=== PATIENT | female | born 2000 | race Caucasian/White ===

== ENCOUNTER → 2019-11-15 10:43 | Outpatient (CLI) | payer OTHER, SELFPAY ==
--- NOTE | 2019-11-15 10:49 | US_ITS ---
PROCEDURE: US EXTREMITY RT LIMITED CLINICAL INDICATION: GANGLION CYST Palpable abnormality in right axilla COMPARISON: No exams were available for comparison FINDINGS: There is an irregular subcutaneous lesion in the right axilla corresponding to the palpable abnormality measuring 2.7 x 1.4 cm. This has an irregular contour with decreased echogenicity centrally with an irregular contour. Possibly related to an enlarged lymph node although imaging findings are somewhat uncharacteristic. Soft tissue mass is considered. Fine-needle aspiration could be performed with sonographic guidance if clinically desired. This does not appear to represent an abscess. Most of the nodule is slightly hypoechoic to surrounding tissue with further decreased echogenicity centrally. IMPRESSION: Irregular subcutaneous nodule as described above at 2.7 x 1.4 cm possibly due to an enlarged lymph node. Soft tissue mass also consideration. Fine-needle aspiration could be performed with sonographic guidance if clinically desired. Dictated by: Tony Reece MD 11/15/2019 13:22 Electronically signed by Tony Reece MD in [place] 11/15/2019 13:22
== END ==
PROVIDERS: PCP Pediatrics; Visit Provider Pediatrics
DX: M71.38 Other bursal cyst, other site (principal)
CPT/HCPCS: 76882

== ENCOUNTER 2021-03-14 13:18 | Emergency (ER) | payer OTHER, SELFPAY ==
[2021-03-14 13:35] VITALS: BP 142/96; PULSE 102; RESP 19; TEMP 37.5; O2SAT 99; BMI 39.1
--- NOTE | 2021-03-14 14:39 | HMH.EDUTC ---
[facility] [place] Impression: Cellulitis and abscess of lower extremity Disposition: Home, Self-Care Condition on Discharge: Good Instructions: DI for Cellulitis -- Adult, Cellulitis, DI for Skin Abscess Additional Instructions: *Start antibiotic(s) immediately and be sure to take as ordered for the FULL length of time although you may be feeling better or start to see improvement in the next 24-48 hours *Monitor closely. Outlined redness so that you can monitor easier. Follow up immediately for new or worsening symptoms including but not limited to redness, swelling, streaking from site fever or chills. *Warm compress 15 minutes 3-4 times day *Never squeeze or pop these on your own. Seek immediate medical attention next time this occurs *Monitor Temp. Tylenol every 4 hours as needed and ibuprofen every 6 hours as needed (as long as your primary care doctor has told you that it is ok to take both. For fever, aches, pain. ER if no less that 101 despite Tylenol and ibuprofen Follow up with your family doctor/primary care physician in the next 48-72 hours if no improvement Make sure to follow up for your wound culture results Return if needed Straight to ER if any life threatening symptoms Prescriptions: Sulfamethoxazole/Trimethoprim [Bactrim DS tablet] 1 each PO BID 10 Days #20 tab Transmission Status: Pending to [facility] cephALEXin [cephALEXin 500mg capsule*] 500 mg PO Q6H 10 Days #40 cap Transmission Status: Pending to [facility] Mupirocin Calcium [Mupirocin 2% Cream 15gm] 1 applicatio TP TID 10 Days #1 tube Transmission Status: Pending to [facility] Referrals: Clementina Alva [Primary Care Provider] - As needed Time of Disposition: 14:46 Medical Decision Making - Parker Inquiry Pt receiving controlled substance: No Parker was queried for this patient: No Vital Signs: 03/14/21 13:35 Temperature 99.5 F Temperature Source Oral Pulse Rate [Right Brachial] 102 H Respiratory Rate 19 Blood Pressure [Right Arm] 142/96 H Blood Pressure Mean [Right Arm] 111 Blood Pressure Source [Right Arm] Automatic Cuff Blood Pressure Position [Right Arm] Sitting 02 Sat by Pulse Oximetry 99 Oxygen Delivery Method Room Air Orders (Tests/Meds): ORDERS Category Date Time Status Wound Culture and Gram Stain Stat Micro 03/14/21 14:41 [place] [facility] [place] - General Stated complaint: spot on rt thigh nausea Time Seen by Provider: 03/14/21 14:39 Mode of Arrival: Ambulatory Source of Information: Patient Limitations: No Limitations Description of Symptoms (Recalled from Triage Doc. by RN): PATIENT C/O SORE TO TOP OF RIGHT THIGH X 3 DAYS HEENT Symptoms (Recalled from RN notes): No Resp Symptoms (Recalled from RN notes): No Skin Symptoms (Recalled from RN notes): Yes MS Symptoms (Recalled from RN notes): No Functional Status (Recalled from RN notes): WNL - History of Present Illness Provider Complaint: Patient states that she has a sore on her right upper thigh area that is red warm and draining State that started draining earlier and looks like one she had before that was MRSA States that she come in to get some antibiotics to help clear it up - Related Data Previous Rx's Medication Instructions Recorded cephalexin 500 mg capsule 500 mg PO BID 10 Days #20 cap 06/12/19 Mupirocin Calcium [Mupirocin 2% 1 applicatio TP TID 10 Days #1 tube 03/14/21 Cream 15gm] Sulfamethoxazole/Trimethoprim 1 each PO BID 10 Days #20 tab 03/14/21 [Bactrim DS tablet] cephALEXin [cephALEXin 500mg 500 mg PO Q6H 10 Days #40 cap 03/14/21 capsule*] Allergies Allergy/AdvReac Type Severity Reaction Status Date / Time No Known Allergies Allergy Unverified 06/12/19 19:36 - Worker's Comp Is this a Worker's Comp case?: No [facility] History - Hepatitis A Screen Drug use history?: No High risk sexual behaviors?: No History of sexually transmitted infection?: No 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
[2021-03-14 14:40] VITALS: BP 142/96; PULSE 102; RESP 19; TEMP 37.5; O2SAT 99
== END 2021-03-14 14:45 | disposition home or self-care (01) ==
PROVIDERS: Emergency Provider Nurse Practitioner; PCP Pediatrics
DX: L02.415 Cutaneous abscess of right lower limb (principal)
CPT/HCPCS: 87070; 87077; 87205; 99202; G0463

== ENCOUNTER 2021-03-15 18:44 | Emergency (ER) | payer OTHER, SELFPAY ==
[2021-03-15 18:45] VITALS: BP 150/91; PULSE 108; RESP 18; TEMP 37.7; O2SAT 98
--- NOTE | 2021-03-15 18:57 | HMH.EDSKAF ---
ED Disposition Clinical Impression: Cellulitis Qualifiers: Site of cellulitis: extremity Site of cellulitis of extremity: lower extremity Laterality: right Qualified Code(s): L03.115 - Cellulitis of right lower limb Abscess of skin or subcutaneous tissue Qualifiers: Site of cutaneous abscess: extremity Site of cutaneous abscess of extremity: lower extremity Laterality: right Qualified Code(s): L02.415 - Cutaneous abscess of right lower limb Disposition: Home, Self-Care Condition on Discharge: Fair Additional Instructions: Please increase the Bactrim dosing from 1 tablet twice a day to 2 tablets twice a day. More Bactrim has been called into your pharmacy. You may also take Zofran as prescribed for your nausea. Keep the area clean. Cover it when you are at work. Follow up with your primary care physician in about 5 days for wound check. Return to the emergency department if symptoms worsen. Prescriptions: Sulfamethoxazole/Trimethoprim [Bactrim DS tablet] 2 each PO BID 5 Days #20 tab Transmission Status: Pending to [facility] Ondansetron [Ondansetron Odt 8mg Tab] 8 mg PO QID 4 Days #16 tab Transmission Status: Pending to [facility] Referrals: Clementina Alva [Primary Care Provider] - - Critical Care Critical Care Time: No Attestation: On , the high probability of a clinically significant, sudden or life threatening deterioration of the following system(s) required my full and direct attention, intervention and personal management. The time I documented below is in addition to time spent performing reported procedures but includes the following listed in this critical care notation. Medical Decision Making - Medical Records Medical records reviewed: Yes: I reviewed the patient's medical records. - Parker Inquiry Pt receiving controlled substance: No Vital Signs: 03/15/21 18:45 Temperature 99.9 F H Temperature Source Oral Pulse Rate [Right] 108 H Respiratory Rate 18 Blood Pressure [Right Arm] 150/91 H Blood Pressure Mean [Right Arm] 110 02 Sat by Pulse Oximetry 98 Oxygen Delivery Method Room Air Medical Decision Narrative: The patient was seen yesterday and prescribed Bactrim double strength twice a day as well as Keflex 4 times a day. She has cellulitis of the proximal right thigh. The cellulitis has increased in size since she started these medications yesterday. I am advising the patient to take Bactrim double strength 2 tablets twice a day instead of 1 tablet. The patient also complains of some nausea. Therefore, prescription for Zofran will also be provided. Skin/Abscess/FB HPI - General Stated complaint: spot on r Leg Time Seen by Provider: 03/15/21 18:57 Mode of Arrival: Ambulatory Source of Information: Patient Limitations: No Limitations - History of Present Illness HPI narrative: Presents to the emergency department complaining of right thigh pain and redness. This has been ongoing for several days. She was seen yesterday and started on Bactrim 1 tablet twice a day as well as Keflex. She states that the redness has worsened since yesterday. MD complaint: rash Tetanus up to date: yes - Related Data Previous Rx's Medication Instructions Recorded cephalexin 500 mg capsule 500 mg PO BID 10 Days #20 cap 06/12/19 Mupirocin Calcium [Mupirocin 2% 1 applicatio TP TID 10 Days #1 tube 03/14/21 Cream 15gm] Sulfamethoxazole/Trimethoprim 1 each PO BID 10 Days #20 tab 03/14/21 [Bactrim DS tablet] cephALEXin [cephALEXin 500mg 500 mg PO Q6H 10 Days #40 cap 03/14/21 capsule*] Ondansetron [Ondansetron Odt 8mg 8 mg PO QID 4 Days #16 tab 03/15/21 Tab] Sulfamethoxazole/Trimethoprim 2 each PO BID 5 Days #20 tab 03/15/21 [Bactrim DS tablet] Allergies Allergy/AdvReac Type Severity Reaction Status Date / Time No Known Allergies Allergy Unverified 06/12/19 19:36 [facility] History - Hepatitis A Screen Drug use history?: No High risk sexual b
[2021-03-15 19:36] VITALS: BP 148/93; PULSE 85; RESP 18; TEMP 36.8; O2SAT 99
== END 2021-03-15 19:39 | disposition home or self-care (01) ==
PROVIDERS: Emergency Provider Emergency Medicine; PCP Pediatrics
DX: L03.115 Cellulitis of right lower limb (principal)
CPT/HCPCS: 99281; 99282

== ENCOUNTER 2021-10-02 12:15 | Emergency (ER) | payer OTHER, SELFPAY ==
[2021-10-02 12:17] VITALS: BP 163/104; PULSE 116; RESP 18; TEMP 36.8; O2SAT 100; BMI 37.5
--- NOTE | 2021-10-02 12:55 | CT_ITS ---
PROCEDURE INFORMATION: Exam: CT Abdomen And Pelvis With Contrast Exam date and time: 10/02/2021 12:55 PM Age: 21 years old Clinical indication: Abdominal pain; Additional info: Left lower quadrant abdominal pain TECHNIQUE: Imaging protocol: Computed tomography of the abdomen and pelvis with contrast. Radiation optimization: All CT scans at this facility use at least one of these dose optimization techniques: automated exposure control; mA and/or kV adjustment per patient size (includes targeted exams where dose is matched to clinical indication); or iterative reconstruction. Contrast material: ISOVUE; Contrast volume: 75 ml; Contrast route: IV; COMPARISON: CR KUB XR KUB 04/08/2018 4:47 PM FINDINGS: Pleural spaces: Mild interstitial prominence without acute airspace or pleural disease. Liver: Fatty infiltration of the liver. Gallbladder and bile ducts: Unremarkable gallbladder. Pancreas: No pancreatic mass or ductal dilatation. Spleen: No splenomegaly. Adrenal glands: Unremarkable adrenals. Kidneys and ureters: Normal renal morphology. No hydronephrosis. Stomach and bowel: Mild wall thickening in the nondistended stomach. No significant small bowel dilatation. Prominent stool. Appendix: No acute appendicitis. Intraperitoneal space: Small quantity of free fluid in the pelvis, asymmetrically localized in the right adnexal region. Vasculature: Normal caliber of the abdominal aorta. Lymph nodes: Multiple lymph nodes, the majority of which are subcentimeter in size. Urinary bladder: Normal bladder morphology. Reproductive: Punctate calcification contiguous with the right anterior uterine wall. Bones/joints: No acute osseous pathology. Soft tissues: Infiltration of subcutaneous fat about the umbilicus. IMPRESSION: 1. Small quantity of free fluid in the pelvis, asymmetrically localized in the right adnexal region. 2. Mild wall thickening in the nondistended stomach. 3. Additional findings as described above.
[2021-10-02 13:04] LABS: Appearance,Urine SL CLOUDY (Clear); Bilirubin,Urine Negative (Negative); Blood, Urine TRACE-I (Negative); Color,Urine YELLOW (Yellow); Glucose,Urine (UA) Negative (Negative); Ketones,Urine Negative (Negative); Leukocyte Esterase,Urine 2+ (Negative); Microscopic, Urine URINE MICROSCOPIC (MICROSCOPIC); Nitrate,Urine Negative (Negative); Protein,Urine Negative (Negative); Specific Gravity, Urine 1.025 (1.005-1.030); Urobilinogen,Urine 0.2 EU/dl (0.2)
[2021-10-02 13:05] LABS: Urine Pregnancy, HCG Qual. Negative (Negative)
[2021-10-02 13:26] LABS: Bacteria,Urine Trace /lpf; WBC,Urine 20-50 #/hpf (0-3)
[2021-10-02 13:51] LABS: Potassium 4.8 mmoL/L (3.5-5.1); Sodium 138 mmol/L (136-145)
[2021-10-02 13:53] LABS: Blood Urea Nitrogen 17 mg/dl (7-17); Creatinine Clearance Estimated 190 mL/min (50-200); Estimated Glomerular Filt Rate 90 ml/min (>60); GFR (African American) 109 ML/MIN (>60)
[2021-10-02 13:54] LABS: Alanine Aminotransferase 46 U/L (12-78); Albumin Level 5.2 g/dl (3.5-5.0); Albumin/Globulin Ratio 1.1 (1.1-1.8); Alkaline Phosphatase 60 U/L (38-126); Aspartate Amino Transferase 51 U/L (14-36); Calcium 9.7 mg/dl (8.4-10.2); Carbon Dioxide 23 mmol/L (22.0-30.0); Globulin 4.8 g/dL (1.3-3.2); Glucose 96 mg/dl (74-100)
[2021-10-02 13:57] LABS: Basophils # 0.2 K/mm3 (0-0.2); Basophils % 1.9 % (0.1-2.0); Eosinophils # 0.2 K/mm3 (0.0-0.4); Eosinophils % 1.5 % (0.1-12.0); Hematocrit 45.5 % (37.0-47.0); Hemoglobin 14.9 g/dL (12.2-16.2); Lymphocytes # 2.1 K/mm3 (0.7-4.5); Lymphocytes % 20.5 % (10-50); Mean Corpuscular HGB Conc 32.7 g/dL (31.8-35.4); Mean Corpuscular Hemoglobin 28.3 pg (27.0-31.2); Mean Corpuscular Volume 86.8 fl (81-99); Mean Platelet Volume 8.1 fl (7.4-10.4); Monocytes # 0.5 K/mm3 (0.1-1.0); Monocytes % 4.7 % (1.7-9.3); Neutrophils # 7.3 K/mm3 (1.8-7.8); Neutrophils % 71.4 % (37.0-80.0); Platelet Count 486 K/mm3 (142-424); Red Blood Count 5.24 M/mm3 (4.20-5.40); Red Cell Distribution Width 13.8 % (11.5-17.5); White Blood Count 10.3 K/mm3 (4.8-10.8)
[2021-10-02 14:09] LABS: Anion Gap 16.8 mEq/L (5-15); Chloride 103 mmol/L (98-107)
--- NOTE | 2021-10-02 15:22 | HMH.EDABDPAI ---
ED Disposition Clinical Impression: Pyelonephritis Disposition: Home, Self-Care Condition on Discharge: Good Prescriptions: Cefdinir [Omnicef 300mg Capsule] 300 mg PO BID #10 cap Transmission Status: Pending to [facility] Ondansetron [Zofran 4mg ODT] 4 mg PO TIDP PRN #12 tab PRN Reason: Nausea Transmission Status: Pending to [facility] Referrals: Joe Nayak APRN [Primary Care Provider] - - Critical Care Critical Care Time: No Attestation: On 10/02/21, the high probability of a clinically significant, sudden or life threatening deterioration of the following system(s) required my full and direct attention, intervention and personal management. The time I documented below is in addition to time spent performing reported procedures but includes the following listed in this critical care notation. Medical Decision Making - Medical Records Medical records reviewed: Yes: I reviewed the patient's medical records. - Parker Inquiry Pt receiving controlled substance: No Parker was queried for this patient: No Vital Signs: 10/02/21 12:17 Temperature 98.3 F Temperature Source Oral Pulse Rate [Right Radial] 116 H Respiratory Rate 18 Blood Pressure [Right Arm] 163/104 H Blood Pressure Mean [Right Arm] 123 Blood Pressure Source [Right Arm] Automatic Cuff Blood Pressure Position [Right Arm] Sitting 02 Sat by Pulse Oximetry 100 Oxygen Delivery Method Room Air - Lab Data Lab results reviewed: Yes: I reviewed the patient's lab results. Lab Results 10/02/21 12:34: Urine Color Yellow, Urine Appearance Sl cloudy, Urine pH 6.0, Ur Specific [place] 1.025, Urine Protein Negative, Urine Glucose (UA) Negative, Urine Ketones Negative, Urine Blood Trace-i, Urine Nitrate Negative, Urine Bilirubin Negative, Urine Urobilinogen 0.2, Ur Leukocyte Esterase 2+ A, Urine WBC 20-50, Ur Squamous Epith Cells 3-5, Urine Bacteria Trace 10/02/21 12:34: Urine HCG, Qual Negative 10/02/21 13:00: WBC 10.3, RBC 5.24, Hgb 14.9, Hct 45.5, MCV 86.8, MCH 28.3, MCHC 32.7, RDW 13.8, Plt Count 486 H, MPV 8.1, Neut % (Auto) 71.4, Lymph % (Auto) 20.5, Mckinley % (Auto) 4.7, Eos % (Auto) 1.5, Baso % (Auto) 1.9, Neut # (Auto) 7.3, Lymph # (Auto) 2.1, Mckinley # (Auto) 0.5, Eos # (Auto) 0.2, Baso # (Auto) 0.2 10/02/21 13:00: Sodium 138, Potassium 4.8, Chloride 103, Carbon Dioxide 23, Anion Gap 16.8 H, BUN 17, Creatinine 0.80, Estimated Creat Clear 190, Estimated GFR 90, Est GFR ( Amer) 109, Glucose 96, Calcium 9.7, Total Bilirubin 1.0, AST 51 H, ALT 46, Alkaline Phosphatase 60, Total Protein 10.0 H, Albumin 5.2 H, Globulin 4.8 H, Albumin/Globulin Ratio 1.1 Result diagrams: 10/02/21 13:00 10/02/21 13:00 Orders (Tests/Meds): ED MEDICATIONS Generic Name Dose Route Start Last Admin Trade Name Freq PRN Reason Stop Dose Admin Sodium Chloride 10 ml 10/02/21 14:16 10/02/21 14:21 Sodium Chloride 0.9% 10ml Syr (Rad Only) IV 11/01/21 14:15 10 ml NEEDED PRN Administration Maintain IV Site Discontinued Medications Generic Name Dose Route Start Last Admin Trade Name Freq PRN Reason Stop Dose Admin Iopamidol 75 ml 10/02/21 14:16 10/02/21 14:21 Iopamidol-370 (76%);100ml Bottle IV 10/02/21 14:17 75 ml ONCE ONE Administration Sodium Chloride 10 ml 10/02/21 14:16 0.9 % Sodium Chloride 50 Ml Vial IV 10/02/21 14:17 ONCE ONE ORDERS Category Date Time Status Urine Culture Stat Micro 10/02/21 12:34 Received Medical Decision Narrative: Is a 21-year-old female with no past medical history presenting to the ED with left lower quadrant abdominal pain. Patient is awake, alert, not in acute distress. Patient is hemodynamically stable, afebrile. Physical exam is remarkable for tenderness to palpation in the left lower quadrant, suprapubic region, right lower quadrant. Differential includes but is not limited to cystitis, pyelonephritis, ovarian cyst, low concern for ovarian torsion, Ap
[2021-10-02 15:36] VITALS: BP 128/101; PULSE 105; RESP 15; TEMP 36.8; O2SAT 98
== END 2021-10-02 15:40 | disposition home or self-care (01) ==
PROVIDERS: Emergency Provider Emergency Medicine; PCP Nurse Practitioner Family
DX: N12 Tubulo-interstitial nephritis, not specified as acute or chronic (principal); E28.2 Polycystic ovarian syndrome
CPT/HCPCS: 74177; 80053; 81001; 81025; 85025; 87086; 99283; Q9967

== ENCOUNTER → 2021-10-07 17:57 | Outpatient (CLI) | payer OTHER, SELFPAY | PROVIDERS: Visit Provider Physician Assistant | DX: R82.90 Unspecified abnormal findings in urine (principal) | CPT/HCPCS: 87086 ==

== ENCOUNTER → 2021-10-15 14:27 | Outpatient (CLI) | payer OTHER, SELFPAY ==
--- NOTE | 2021-10-15 14:42 | US_ITS ---
FINAL REPORT CLINICAL HISTORY: LLQ pain, PCOS FINDINGS: Transvaginal sonographic images of the pelvis were obtained. The uterus measures 7.8 x 3.5 x 4.6 cm. The endometrium measures 8 mm, which is within normal limits. No uterine mass is identified. The right ovary measures 3.3 cm in length and left ovary measures 4.2 cm in length. Normal blood flow seen to the ovaries. There is a 2.3 x 1.6 cm probable cyst in the right ovary. There is complex fluid in the right adnexa with septations. There is a small amount of fluid in the cul-de-sac which may be physiologic or reactive. IMPRESSION: Small right cyst in the right ovary. Complex fluid in the right adnexa, may be reactive or physiologic. If indicated, a follow-up ultrasound may be helpful. Reviewed, Interpreted and Dictated by Vimal Lema III, MD Transcribed by Judy Romo Authenticated by Vimal Lema III, MD on 10/15/2021 04:36:48 PM [facility]
== END ==
PROVIDERS: PCP Physician Assistant; Visit Provider Physician Assistant
DX: R10.32 Left lower quadrant pain (principal)
CPT/HCPCS: 76830

== ENCOUNTER 2022-01-08 13:29 | Emergency (ER) | payer OTHER, SELFPAY ==
[2022-01-08 13:29] VITALS: BP 165/88; PULSE 114; RESP 16; TEMP 36.6; O2SAT 98; BMI 40.7
--- NOTE | 2022-01-08 13:32 | HMH.EDUROGF ---
ED Disposition Clinical Impression: Vaginal bleeding Disposition: Home, Self-Care Condition on Discharge: Fair Instructions: DI for Vaginal Bleeding Additional Instructions: Please return to the emergency department if you feel worse in any way. Follow-up with your respiratory care program director and/or your primary care physician in the next few days. Stop taking your current control and take the medication prescribed today instead. Prescriptions: Medroxyprogesterone Acetate [Provera] 10 mg PO DAILY #7 tab Transmission Status: Pending to [facility] Referrals: Shamar Tristan MD [Primary Care Provider] - - Critical Care Critical Care Time: No Attestation: On , the high probability of a clinically significant, sudden or life threatening deterioration of the following system(s) required my full and direct attention, intervention and personal management. The time I documented below is in addition to time spent performing reported procedures but includes the following listed in this critical care notation. Medical Decision Making - Medical Records Medical records reviewed: Yes: I reviewed the patient's medical records. - Parker Inquiry Pt receiving controlled substance: No Vital Signs: 01/08/22 13:29 01/08/22 14:16 01/08/22 16:06 Temperature 98 F Temperature Source Oral Pulse Rate 114 H 109 H Pulse Rate [Radial] 114 H Respiratory Rate 16 Blood Pressure 152/99 H 162/93 H Blood Pressure [Right Arm] 165/88 H Blood Pressure Mean 114 Blood Pressure Mean [Right Arm] 113 Blood Pressure Position [Right Arm] Sitting 02 Sat by Pulse Oximetry 98 Oxygen Delivery Method Room Air - Lab Data Lab results reviewed: Yes: I reviewed the patient's lab results. Lab Results 01/08/22 14:45: Sodium 140, Potassium 4.9, Chloride 109 H, Carbon Dioxide 18 L, Anion Gap 17.9 H, BUN 12, Creatinine 0.60, Estimated Creat Clear 274, Estimated GFR 125, Est GFR ( Amer) 151, Glucose 110 H, Calcium 9.9, Total Bilirubin 0.7, AST 41 H, ALT 30, Alkaline Phosphatase 57, Total Protein 8.2, Albumin 4.1, Globulin 4.1 H, Albumin/Globulin Ratio 1.0 L 01/08/22 14:45: HCG, Quant < 2 Result diagrams: 01/08/22 14:45 Orders (Tests/Meds): ORDERS Category Date Time Status Complete Blood Count Auto Diff Stat Lab 01/08/22 13:32 Ordered PT/PTT Stat Lab 01/08/22 13:32 Ordered Prothrombin Time INR Stat Lab 01/08/22 13:32 Ordered Medical Decision Narrative: Several attempts at obtaining blood for a CBC failed. The blood keeps clotting. Multiple people have tried. Including the mission support specialist. The patient refuses further blood draws. Clinically, she does not appear anemic. There is no conjunctival pallor. She is not hypotensive. The remainder of the patient's blood work is relatively unremarkable. Her test is undetectable. She does have a mildly elevated anion gap. However the patient was crying during her blood draw and had a blood tourniquet on for prolonged period of time due to due to the difficulty of obtaining blood. Not believe this finding to be of clinical significance. The patient will be discharged home with a prescription for oral Provera. Follow-up with her primary care physician and/or a respiratory care program director in the next few days. Female Urogenital HPI - General Stated complaint: vaginal bleeding, passing clots Time Seen by Provider: 01/08/22 13:32 Mode of Arrival: Ambulatory Source of Information: Patient - History of Present Illness HPI Narrative: The patient presents to the emergency department complaining of vaginal bleeding. She has had similar problems in the past. She was once diagnosed with polycystic ovarian syndrome. She states that she was recently started on a new control on the of last month. And that her bleeding has worsened since then. She states that it has gotten really bad with large clots in the last 3 days. Denies any vomiting, diarrhea, abdominal
--- NOTE | 2022-01-08 14:14 | PC.NURSE ---
Attempted to draw labs from patient; was able to get in vein and get blood return in the left AC but wasn't enough blood to fill the tubes that were needed to obtain the labs. Had Krystle Conner come and try as well, she tried in right AC but was unsuccessful. MONI Flores tried in the right hand, but got blood return and some blood in the tube but sent to lab and lab called and stated that it wasn't enough blood to run the test. Stated they would come down and draw the labs. Awaiting lab at this time.
--- NOTE | 2022-01-08 14:14 | PC.NURSE ---
Lab is coming to draw blood from pt
[2022-01-08 14:16] VITALS: BP 152/99; PULSE 114
--- NOTE | 2022-01-08 14:26 | PC.NURSE ---
Noy from lab bedside with patient trying to obtain labs.
[2022-01-08 15:13] LABS: Glucose 110 mg/dl (74-100)
[2022-01-08 15:14] LABS: Alanine Aminotransferase 30 U/L (12-78); Albumin Level 4.1 g/dl (3.5-5.0); Anion Gap 17.9 mEq/L (5-15); Aspartate Amino Transferase 41 U/L (14-36); Bilirubin,Total 0.7 mg/dl (0.2-1.3); Blood Urea Nitrogen 12 mg/dl (7-17); Calcium 9.9 mg/dl (8.4-10.2); Carbon Dioxide 18 mmol/L (22.0-30.0); Chloride 109 mmol/L (98-107); Creatinine Clearance Estimated 274 mL/min (50-200); Estimated Glomerular Filt Rate 125 ml/min (>60); GFR (African American) 151 ML/MIN (>60); Globulin 4.1 g/dL (1.3-3.2); Potassium 4.9 mmoL/L (3.5-5.1); Sodium 140 mmol/L (136-145); Total Protein,Serum 8.2 g/dl (6.3-8.2)
[2022-01-08 15:15] LABS: Alkaline Phosphatase 57 U/L (38-126)
--- NOTE | 2022-01-08 15:32 | PC.NURSE ---
rn in room attempting to get blood again
[2022-01-08 15:50] LABS: HCG,Quantitative < 2 mIU/ml (0-5.42)
[2022-01-08 16:06] VITALS: BP 162/93; PULSE 109
[2022-01-08 16:31] VITALS: BP 136/84; PULSE 102; O2SAT 97
[2022-01-08 17:16] VITALS: BP 168/89; PULSE 106; RESP 18; TEMP 36.6; O2SAT 98
--- NOTE | 2022-01-08 17:19 | PC.NURSE ---
pt difficult lab draw
== END 2022-01-08 17:34 | disposition home or self-care (01) ==
PROVIDERS: Emergency Provider Emergency Medicine; PCP Emergency Medicine
DX: N93.9 Abnormal uterine and vaginal bleeding, unspecified (principal)
CPT/HCPCS: 36415; 80053; 84702; 99283

== ENCOUNTER 2022-01-26 15:20 | Emergency (ER) | payer OTHER, SELFPAY ==
[2022-01-26 15:30] VITALS: BP 137/90; PULSE 140; RESP 16; TEMP 37.8; O2SAT 100; BMI 42.3
[2022-01-26 16:02] VITALS: BMI 42.3
[2022-01-26 16:06] LABS: Microscopic, Urine URINE MICROSCOPIC (MICROSCOPIC)
[2022-01-26 16:10] LABS: Appearance,Urine CLEAR (Clear); Bilirubin,Urine Negative (Negative); Blood, Urine Negative (Negative); Color,Urine YELLOW (Yellow); Glucose,Urine (UA) Negative (Negative); Ketones,Urine TRACE (Negative); Leukocyte Esterase,Urine TRACE (Negative); Nitrate,Urine Negative (Negative); Protein,Urine Negative (Negative); Specific Gravity, Urine 1.015 (1.005-1.030); Urobilinogen,Urine 0.2 EU/dl (0.2)
[2022-01-26 16:13] LABS: Urine Pregnancy, HCG Qual. Negative (Negative)
--- NOTE | 2022-01-26 16:47 | HMH.EDABDPAI ---
ED Disposition Clinical Impression: Abdominal pain Disposition: Home, Self-Care Condition on Discharge: Good Instructions: DI for Acute Abdominal Pain Additional Instructions: Please follow-up with your primary care physician in 2 to 3 days for further management. Please take Tylenol and ibuprofen for pain control. You have also been given Toradol please take as prescribed for pain. Please return to the emergency department for any worsening symptoms, vaginal bleeding, inability to eat and drink or any other concerns. Prescriptions: Ketorolac Tromethamine [Toradol 10mg tablet] 10 mg PO Q4HP PRN #15 tab MDD 40mg/day PRN Reason: Moderate Pain Transmission Status: Received by [id number] Cefdinir [Cefdinir 250mg/5ml Oral Susp] 375 mg PO BID #14 ml Transmission Status: Received by [id number] Referrals: Marlena Walton PA [Primary Care Provider] - - Critical Care Critical Care Time: No Attestation: On 01/26/22, the high probability of a clinically significant, sudden or life threatening deterioration of the following system(s) required my full and direct attention, intervention and personal management. The time I documented below is in addition to time spent performing reported procedures but includes the following listed in this critical care notation. Medical Decision Making - Medical Records Medical records reviewed: Yes: I reviewed the patient's medical records. - Parker Inquiry Pt receiving controlled substance: No Vital Signs: 01/26/22 15:30 01/26/22 17:31 01/26/22 18:02 Temperature 100.0 F H Temperature Source Oral Pulse Rate 133 H 112 H Pulse Rate [Left Radial] 140 H Respiratory Rate 16 16 16 Blood Pressure 142/92 H 117/61 Blood Pressure [Left Arm] 137/90 Blood Pressure Mean 103 79 Blood Pressure Mean [Left Arm] 105 Blood Pressure Source [Left Arm] Automatic Cuff Blood Pressure Position [Left Arm] Sitting 02 Sat by Pulse Oximetry 100 97 98 Oxygen Delivery Method Room Air Room Air 01/26/22 18:31 01/26/22 19:16 Temperature 98.9 F Temperature Source Oral Pulse Rate 102 H 92 H Pulse Rate [Left Radial] Respiratory Rate 16 16 Blood Pressure 101/63 L 107/60 L Blood Pressure [Left Arm] Blood Pressure Mean 73 Blood Pressure Mean [Left Arm] Blood Pressure Source [Left Arm] Blood Pressure Position [Left Arm] 02 Sat by Pulse Oximetry 98 Oxygen Delivery Method Room Air - Lab Data Lab results reviewed: Yes: I reviewed the patient's lab results. Lab Results 01/26/22 15:45: Urine Color Yellow, Urine Appearance Clear, Urine pH 6.0, Ur Specific [place] 1.015, Urine Protein Negative, Urine Glucose (UA) Negative, Urine Ketones Trace, Urine Blood Negative, Urine Nitrate Negative, Urine Bilirubin Negative, Urine Urobilinogen 0.2, Ur Leukocyte Esterase Trace, Urine RBC Occasional, Urine WBC 3-5, Ur Squamous Epith Cells 3-5, Urine Bacteria 1+ 01/26/22 15:45: Urine HCG, Qual Negative 01/26/22 16:59: WBC 19.8 H, RBC 4.36, Hgb 11.8 L, Hct 35.6 L, MCV 81.6, MCH 27.0, MCHC 33.1, RDW 14.3, Plt Count 733 H, MPV 7.7, Neut % (Auto) 87.9 H, Lymph % (Auto) 6.3 L, [place] % (Auto) 3.9, Eos % (Auto) 0.4, Baso % (Auto) 1.4, Neut # (Auto) 17.4 H, Lymph # (Auto) 1.3, [place] # (Auto) 0.8, Eos # (Auto) 0.1, Baso # (Auto) 0.3 H, Total Counted 100, Neutrophils % (Manual) 86 H, Band Neutrophils % 1.0, Lymphocytes % (Manual) 10, Monocytes % (Manual) 3, Platelet Estimate Moderate increase, Hypochromasia 1+, Anisocytosis 1+ 01/26/22 16:59: Sodium 137, Potassium 4.1, Chloride 101, Carbon Dioxide 23, Anion Gap 17.1 H, BUN 9, Creatinine 0.80, Estimated Creat Clear 103, Estimated GFR 90, Est GFR ( Amer) 109, Glucose 131 H, Calcium 9.8, Total Bilirubin 0.6, AST 32, ALT 36, Alkaline Phosphatase 88, Total Protein 9.2 H, Albumin 4.8, Globulin 4.4 H, Albumin/Globulin Ratio 1.1, Lipase 65 01/26/22 16:59: Lactate 2.9 H 01/26/22 17:07: SARS-CoV-2 (PCR) Not detected, Influenza A Untype (PC
[2022-01-26 16:53] LABS: Bacteria,Urine 1+ /lpf; RBC,Urine Occasional #/hpf (0-3)
[2022-01-26 17:08] LABS: Basophils # 0.3 K/mm3 (0-0.2); Basophils % 1.4 % (0.1-2.0); Eosinophils # 0.1 K/mm3 (0.0-0.4); Eosinophils % 0.4 % (0.1-12.0); Hematocrit 35.6 % (37.0-47.0); Hemoglobin 11.8 g/dL (12.2-16.2); Lymphocytes # 1.3 K/mm3 (0.7-4.5); Lymphocytes % 6.3 % (10-50); Mean Corpuscular HGB Conc 33.1 g/dL (31.8-35.4); Mean Corpuscular Volume 81.6 fl (81-99); Mean Platelet Volume 7.7 fl (7.4-10.4); Monocytes # 0.8 K/mm3 (0.1-1.0); Monocytes % 3.9 % (1.7-9.3); Neutrophils # 17.4 K/mm3 (1.8-7.8); Neutrophils % 87.9 % (37.0-80.0); Platelet Count 733 K/mm3 (142-424); Red Blood Count 4.36 M/mm3 (4.20-5.40); Red Cell Distribution Width 14.3 % (11.5-17.5); White Blood Count 19.8 K/mm3 (4.8-10.8)
[2022-01-26 17:13] LABS: Chloride 101 mmol/L (98-107); Potassium 4.1 mmoL/L (3.5-5.1); Sodium 137 mmol/L (136-145)
[2022-01-26 17:13] LABS: Coronavirus 19, PCR Not Detected (NotDetected); Influenza A, PCR Not Detected (NotDetected); Influenza B, PCR Not Detected (NotDetected)
[2022-01-26 17:16] LABS: Alanine Aminotransferase 36 U/L (12-78); Alkaline Phosphatase 88 U/L (38-126); Anion Gap 17.1 mEq/L (5-15); Aspartate Amino Transferase 32 U/L (14-36); Bilirubin,Total 0.6 mg/dl (0.2-1.3); Blood Urea Nitrogen 9 mg/dl (7-17); Calcium 9.8 mg/dl (8.4-10.2); Carbon Dioxide 23 mmol/L (22.0-30.0); Creatinine Clearance Estimated 103 mL/min (50-200); Estimated Glomerular Filt Rate 90 ml/min (>60); GFR (African American) 109 ML/MIN (>60); Glucose 131 mg/dl (74-100); Lipase 65 U/L (23-300)
[2022-01-26 17:17] LABS: Albumin Level 4.8 g/dl (3.5-5.0); Albumin/Globulin Ratio 1.1 (1.1-1.8); Globulin 4.4 g/dL (1.3-3.2); Total Protein,Serum 9.2 g/dl (6.3-8.2)
[2022-01-26 17:22] LABS: Lactic Acid 2.9 mmol/L (0.7-2.1)
[2022-01-26 17:24] LABS: MANUAL DIFFERENTIAL MANUAL DIFFERENTIAL (MANUAL DIFF)
[2022-01-26 17:31] VITALS: BP 142/92; PULSE 133; RESP 16; O2SAT 97
[2022-01-26 18:02] VITALS: BP 117/61; PULSE 112; RESP 16; O2SAT 98
[2022-01-26 18:31] VITALS: BP 101/63; PULSE 102; RESP 16; O2SAT 98
[2022-01-26 18:35] LABS: Lymphocytes % 10 % (10-50); Monocytes % 3 % (2-9); Neutrophils % 86 % (42-76); Platelet Estimate Moderate Increase; Total Cells Counted 100
[2022-01-26 18:36] LABS: Anisocytosis 1+; Hypochromasia 1+
[2022-01-26 19:16] VITALS: BP 107/60; PULSE 92; RESP 16; TEMP 37.2; O2SAT 99
[2022-01-26 21:05] LABS: Reflex Lactic Add Lactic Reflex
== END 2022-01-26 19:18 | disposition home or self-care (01) ==
PROVIDERS: Emergency Provider Student in an Organized Health Care Education/Training Program; PCP Physician Assistant
DX: R10.30 Lower abdominal pain, unspecified (principal); R30.0 Dysuria; R11.0 Nausea
CPT/HCPCS: 80053; 81001; 81025; 83605; 83690; 85007; 85025; 96360; 96375; 99284; C9803; U0003; U0005

== ENCOUNTER → 2022-02-01 12:02 | Outpatient (CLI) | payer OTHER, SELFPAY | PROVIDERS: PCP Physician Assistant; Visit Provider Physician Assistant | DX: N39.0 Urinary tract infection, site not specified (principal) | CPT/HCPCS: 87086 ==

== ENCOUNTER → 2022-02-02 14:21 | Outpatient (CLI) | payer OTHER, SELFPAY ==
--- NOTE | 2022-02-02 14:25 | XR_ITS ---
FINAL REPORT CLINICAL HISTORY: fever COMPARISON: April 08, 2018 FINDINGS: Two views of the chest were obtained. The heart size and pulmonary vascularity are within normal limits. The mediastinum is normal. No acute pulmonary abnormality is identified. There is no pneumothorax. The bony thorax is intact. IMPRESSION: No active cardiopulmonary disease. Reviewed, Interpreted and Dictated by Vimal Lema III, MD Transcribed by Willam Anaya Authenticated and [facility]
[2022-02-02 14:55] LABS: Basophils # 0.1 K/mm3 (0-0.2); Basophils % 0.9 % (0.1-2.0); Eosinophils # 0.8 K/mm3 (0.0-0.4); Eosinophils % 5.1 % (0.1-12.0); Hematocrit 31.3 % (37.0-47.0); Hemoglobin 10.3 g/dL (12.2-16.2); Lymphocytes # 2.3 K/mm3 (0.7-4.5); Lymphocytes % 14.2 % (10-50); Mean Corpuscular HGB Conc 32.9 g/dL (31.8-35.4); Mean Corpuscular Hemoglobin 26.5 pg (27.0-31.2); Mean Corpuscular Volume 80.6 fl (81-99); Mean Platelet Volume 7.2 fl (7.4-10.4); Monocytes # 0.5 K/mm3 (0.1-1.0); Monocytes % 2.8 % (1.7-9.3); Neutrophils # 12.2 K/mm3 (1.8-7.8); Neutrophils % 77.1 % (37.0-80.0); Platelet Count 621 K/mm3 (142-424); Red Blood Count 3.89 M/mm3 (4.20-5.40); Red Cell Distribution Width 14.8 % (11.5-17.5); White Blood Count 15.9 K/mm3 (4.8-10.8)
[2022-02-02 15:32] LABS: Lactic Acid 1.1 mmol/L (0.7-2.1)
[2022-02-02 15:40] LABS: MANUAL DIFFERENTIAL MANUAL DIFFERENTIAL (MANUAL DIFF)
[2022-02-02 16:03] LABS: Hemoglobin A1C 4.9 % (4.0-6.0)
[2022-02-02 19:05] LABS: Eosinophils % 1 % (0-3); Lymphocytes % 18 % (10-50); Microcytosis 1+; Monocytes % 3 % (2-9); Neutrophils % 78 % (42-76); Platelet Estimate Marked Increase; Total Cells Counted 100
[2022-02-02 20:44] LABS: Chloride 102 mmol/L (98-107); Sodium 137 mmol/L (136-145)
[2022-02-02 20:45] LABS: Potassium 4.2 mmoL/L (3.5-5.1)
[2022-02-02 20:47] LABS: Alanine Aminotransferase 21 U/L (12-78); Albumin Level 4.2 g/dl (3.5-5.0); Alkaline Phosphatase 99 U/L (38-126); Anion Gap 16.2 mEq/L (5-15); Aspartate Amino Transferase 21 U/L (14-36); Bilirubin,Total 0.4 mg/dl (0.2-1.3); Blood Urea Nitrogen 8 mg/dl (7-17); Carbon Dioxide 23 mmol/L (22.0-30.0); Estimated Glomerular Filt Rate 90 ml/min (>60); GFR (African American) 109 ML/MIN (>60); Globulin 4.1 g/dL (1.3-3.2); Total Protein,Serum 8.3 g/dl (6.3-8.2)
[2022-02-02 20:48] LABS: Calcium 9.6 mg/dl (8.4-10.2); Glucose 92 mg/dl (74-100)
[2022-02-04 14:34] LABS: Peripheral Smear Review Scanned Result
== END ==
PROVIDERS: PCP Physician Assistant; Visit Provider Physician Assistant
DX: R50.9 Fever, unspecified (principal); R73.9 Hyperglycemia, unspecified; E87.2 Acidosis
CPT/HCPCS: 36415; 71046; 80053; 83036; 83605; 85007; 85025

== ENCOUNTER → 2022-02-07 11:42 | Outpatient (CLI) | payer OTHER, SELFPAY ==
[2022-02-07 12:20] LABS: Basophils # 0.1 K/mm3 (0-0.2); Basophils % 1.1 % (0.1-2.0); Eosinophils # 0.6 K/mm3 (0.0-0.4); Eosinophils % 4.9 % (0.1-12.0); Hemoglobin 10.2 g/dL (12.2-16.2); Lymphocytes % 17.1 % (10-50); Mean Corpuscular Hemoglobin 26.4 pg (27.0-31.2); Mean Corpuscular Volume 79.8 fl (81-99); Mean Platelet Volume 7.1 fl (7.4-10.4); Monocytes # 0.5 K/mm3 (0.1-1.0); Neutrophils # 8.6 K/mm3 (1.8-7.8); Neutrophils % 72.9 % (37.0-80.0); Platelet Count 782 K/mm3 (142-424); Red Blood Count 3.89 M/mm3 (4.20-5.40); White Blood Count 11.8 K/mm3 (4.8-10.8)
[2022-02-07 12:48] LABS: Erythrocyte Sedimentation Rate 103 mm/hr (0-20)
[2022-02-07 13:54] LABS: Vitamin B12 469 pg/mL (239-931)
[2022-02-07 14:01] LABS: Ferritin 25.1 ng/ml (6.24-137)
[2022-02-08 08:58] LABS: RA Latex Turbid. 12.7 IU/mL (<14.0)
[2022-02-09 00:08] LABS: Anti-Cyclic Citrullinated Pept 15 units (0-19)
== END ==
PROVIDERS: PCP Physician Assistant; Visit Provider Physician Assistant
DX: R50.9 Fever, unspecified (principal)
CPT/HCPCS: 36415; 82607; 82728; 85025; 85651; 86200; 86431

== ENCOUNTER → 2022-02-15 10:38 | Outpatient (CLI) | payer OTHER, SELFPAY ==
--- NOTE | 2022-02-15 10:38 | CT_ITS ---
FINAL REPORT CLINICAL HISTORY: abdominal pain, fever, elevated white count COMPARISON: October 02, 2021 FINDINGS: Axial CT images of the abdomen and pelvis were obtained without intravenous contrast. Coronal reformatted images were also obtained.This study was performed with techniques to keep radiation doses as low as reasonably achievable (ALARA). Individualized dose reduction techniques using automated exposure control or adjustment of mA and/or kV according to the patient's size were employed. Abdomen: The lung bases are clear. There is no evidence of renal stone or hydronephrosis. There is mild fatty infiltration of the liver. There is a small amount of free fluid adjacent to the inferior liver. The gallbladder is present. The spleen and pancreas have an unremarkable, unenhanced appearance. No mass or adenopathy is seen. Pelvis: Images of the pelvis reveal no evidence of ureteral dilation or ureteral stone. There is a small amount of free fluid in the pelvis and in the right pelvis adjacent to small bowel loops. The appendix is partially visualized and normal where seen. No mass is identified. IMPRESSION: Small amount of free fluid in the abdomen and pelvis of uncertain etiology. No convincing evidence of appendicitis. Findings could be physiologic or reactive. If symptoms persist follow-up CT may be helpful. Reviewed, Interpreted and Dictated by Vimal Lema III, MD Transcribed by Willam Anaya Authenticated and [facility]
== END ==
PROVIDERS: PCP Physician Assistant; Visit Provider Physician Assistant
DX: R10.9 Unspecified abdominal pain (principal); D72.829 Elevated white blood cell count, unspecified; R50.9 Fever, unspecified
CPT/HCPCS: 74176

== ENCOUNTER → 2022-03-03 14:07 | Outpatient (CLI) | payer OTHER, SELFPAY ==
[2022-03-03 14:33] LABS: Basophils # 0.1 K/mm3 (0-0.2); Basophils % 0.5 % (0.1-2.0); Eosinophils # 0.5 K/mm3 (0.0-0.4); Eosinophils % 4.1 % (0.1-12.0); Hematocrit 30.5 % (37.0-47.0); Hemoglobin 9.7 g/dL (12.2-16.2); Lymphocytes # 2.2 K/mm3 (0.7-4.5); Lymphocytes % 19.5 % (10-50); Mean Corpuscular HGB Conc 31.6 g/dL (31.8-35.4); Mean Corpuscular Hemoglobin 23.3 pg (27.0-31.2); Mean Corpuscular Volume 73.7 fl (81-99); Mean Platelet Volume 6.6 fl (7.4-10.4); Monocytes # 0.5 K/mm3 (0.1-1.0); Monocytes % 4.3 % (1.7-9.3); Neutrophils % 71.6 % (37.0-80.0); Platelet Count 588 K/mm3 (142-424); Red Blood Count 4.14 M/mm3 (4.20-5.40); Red Cell Distribution Width 14.7 % (11.5-17.5); White Blood Count 11.2 K/mm3 (4.8-10.8)
== END ==
PROVIDERS: Internal Medicine Hematology & Oncology; PCP Physician Assistant; Visit Provider Internal Medicine Medical Oncology
DX: E61.1 Iron deficiency (principal)
CPT/HCPCS: 36415; 82728; 83540; 83550; 85025

== ENCOUNTER 2022-03-14 11:55 | Outpatient (CLI) | payer OTHER, SELFPAY ==
[2022-03-14 12:10] VITALS: BP 142/85; PULSE 88; RESP 18; TEMP 37.2; O2SAT 100
[2022-03-14 12:53] VITALS: BP 141/83; PULSE 99; RESP 18; O2SAT 100
== END 2022-03-14 12:53 | disposition home or self-care (01) ==
LOC: INF 11:56
PROVIDERS: PCP Physician Assistant; Visit Provider Internal Medicine Hematology & Oncology
DX: R79.89 Other specified abnormal findings of blood chemistry (principal)
CPT/HCPCS: 96365; J1439

== ENCOUNTER 2022-03-21 12:45 | Outpatient (CLI) | payer OTHER, SELFPAY ==
[2022-03-21 13:00] VITALS: BP 156/100; PULSE 96; RESP 18; TEMP 36.7; O2SAT 100
[2022-03-21 13:37] VITALS: BP 142/85; PULSE 90; RESP 18
== END 2022-03-21 13:37 | disposition home or self-care (01) ==
LOC: INF 12:46
PROVIDERS: PCP Physician Assistant; Visit Provider Internal Medicine Medical Oncology
DX: D69.8 Other specified hemorrhagic conditions; D50.8 Other iron deficiency anemias
CPT/HCPCS: 96365; J1439

== ENCOUNTER → 2022-04-29 13:40 | Outpatient (CLI) | payer OTHER, SELFPAY ==
[2022-04-29 15:15] LABS: Basophils # 0.1 K/mm3 (0-0.2); Basophils % 0.6 % (0.1-2.0); Eosinophils # 0.3 K/mm3 (0.0-0.4); Eosinophils % 3.4 % (0.1-12.0); Hematocrit 41.2 % (37.0-47.0); Hemoglobin 13.2 g/dL (12.2-16.2); Lymphocytes # 2.9 K/mm3 (0.7-4.5); Lymphocytes % 29.5 % (10-50); Mean Corpuscular Hemoglobin 24.9 pg (27.0-31.2); Mean Corpuscular Volume 77.9 fl (81-99); Mean Platelet Volume 7.3 fl (7.4-10.4); Monocytes # 0.5 K/mm3 (0.1-1.0); Monocytes % 5.3 % (1.7-9.3); Neutrophils # 5.9 K/mm3 (1.8-7.8); Neutrophils % 61.1 % (37.0-80.0); Platelet Count 480 K/mm3 (142-424); Red Cell Distribution Width 21.5 % (11.5-17.5); White Blood Count 9.7 K/mm3 (4.8-10.8)
[2022-04-29 15:35] LABS: Iron 81 ug/dL (37-170)
[2022-04-29 15:44] LABS: Total Iron Binding Capacity 260 ug/dL (265-497)
[2022-04-29 16:11] LABS: Ferritin 171 ng/ml (6.24-137)
== END ==
PROVIDERS: PCP Physician Assistant; Visit Provider Internal Medicine Medical Oncology
DX: R79.89 Other specified abnormal findings of blood chemistry (principal)
CPT/HCPCS: 36415; 82728; 83540; 83550; 85025

== ENCOUNTER → 2022-05-12 17:56 | Outpatient (CLI) | payer OTHER, SELFPAY | PROVIDERS: PCP Physician Assistant; Visit Provider Physician Assistant | DX: R21 Rash and other nonspecific skin eruption (principal); B95.4 Other streptococcus as the cause of diseases classified elsewhere | CPT/HCPCS: 87070; 87077; 87186; 87205 ==

== ENCOUNTER 2022-05-27 13:10 | Emergency (ER) | payer OTHER, SELFPAY ==
[2022-05-27 13:23] VITALS: BP 143/95; PULSE 92; RESP 18; TEMP 36.9; O2SAT 99; BMI 41.1
--- NOTE | 2022-05-27 13:26 | EXP.UTC ---
Discharge Plan Disposition Patient Disposition: Home, Self-Care Condition: Good Prescriptions Prescriptions: New medroxyprogesterone [Provera] 5 mg tablet 5 mg PO DAILY Qty: 7 0RF ferrous sulfate 325 mg (65 mg iron) tablet 325 mg PO DAILY Qty: 30 2RF No Action hydrochlorothiazide 25 mg tablet 25 mg PO QAM Qty: 90 0RF drospirenone-ethinyl estradiol [Sariah (28)] 3-0.03 mg tablet 1 tab PO DAILY Referrals Follow up/Referrals: Marlena Walton PA [Primary Care Provider] - See instructions Activity Restrictions/Add. Instructions Additional Instructions/Restrictions: Drink plenty of fluids. Take tylenol for pain. Take the medications as directed. Follow up with your regular doctor. Follow up with your gynocologist GO TO THE ER FOR ANY WORSENING SYMPTOMS Clinical Impressions Clinical Impression: Abnormal uterine bleeding Stand Alone Forms Stand Alone Forms: Work/School Release Discharge ED Provider: Humza Flores [facility] General Stated complaint: Excessive vaginal bleeding Time Seen by Provider: 05/27/22 13:26 History of Present Illness Provider Complaint: She is here with heavy vaginal bleeding. she is currently on her period. She recently stopped her bcp. In the past when she changed bcp's she had an episode of a very heavy period similar to what she is having now that caused her to become anemic and and to need a unit of blood. She was prescribed provera then and she is requesting that to be prescribed now. Related Data Home Medications Medication Instructions Recorded Confirmed drospirenone 3 mg-ethinyl 1 tab PO DAILY control 05/27/22 05/27/22 estradiol 0.03 mg tablet (Sariah (28)) Previous Rx's Medication Instructions Recorded hydrochlorothiazide 25 mg tablet 25 mg PO QAM Hypertension #90 tabs 04/29/22 ferrous sulfate 325 mg (65 mg 325 mg PO DAILY #30 tabs 05/27/22 iron) tablet medroxyprogesterone 5 mg tablet 5 mg PO DAILY #7 tabs 05/27/22 (Provera) Allergies Allergy/AdvReac Type Severity Reaction Status Date / Time No Known Allergies Allergy Verified 05/27/22 13:26 [facility] Medical History Family history of diabetes mellitus (DM) Obesity, Class III, BMI 40-49.9 (morbid obesity) PCOS (polycystic ovarian syndrome) Social History Smoking Status: Never smoker alcohol intake: never substance use type: denies use current occupational status: unemployed Travel in the last 8 weeks: None household members: none housing: house ROS Obtained: Yes All systems reviewed & no additional complaints except as documented Constitutional Constitutional: Reports system reviewed and no additional complaints, except as documented, Denies chills and Denies fever(s) Eyes Eyes: Denies eye discharge ENT Ears, Nose, Mouth, and Throat: Denies dysphagia, Denies sore throat and Denies throat swelling Cardiovascular Cardiovascular: Denies chest pain and Denies dyspnea Respiratory Respiratory: Denies chest congestion, Denies cough and Denies dyspnea Gastrointestinal Gastrointestingal: Denies abdominal pain, constipation, diarrhea, dysphagia, nausea or vomiting Musculoskeletal Musculoskeletal: Denies arthralgias Integumentary/Breasts Skin/Breast: Denies rash Neurologic Neurologic: Denies paresthesias Allergic/Immunologic Allergic/Immunologic: Denies throat swelling Physical Exam General General appearance: alert and in no apparent distress Head Head exam: atraumatic, normocephalic and normal inspection Eye Eye exam: Present normal appearance, PERRL and EOMI ENT ENT exam: Present normal exam, normal oropharynx, mucous membranes moist, TM's normal bilaterally and normal external ear exam Neck Neck exam: Present normal inspection, full ROM and trachea midline; Absent meningismus or lymphadenopathy Chest Chest inspection: Pr
[2022-05-27 13:58] LABS: UTC Pregnancy Test, Urine Negative (Negative)
[2022-05-27 14:58] LABS: Basophils # 0.1 K/mm3 (0-0.2); Basophils % 1.3 % (0.1-2.0); Eosinophils # 0.3 K/mm3 (0.0-0.4); Eosinophils % 3.7 % (0.1-12.0); Hematocrit 37.9 % (37.0-47.0); Hemoglobin 12.5 g/dL (12.2-16.2); Mean Corpuscular HGB Conc 33.1 g/dL (31.8-35.4); Mean Corpuscular Hemoglobin 25.7 pg (27.0-31.2); Mean Corpuscular Volume 77.7 fl (81-99); Mean Platelet Volume 7.8 fl (7.4-10.4); Monocytes # 0.4 K/mm3 (0.1-1.0); Monocytes % 3.8 % (1.7-9.3); Neutrophils # 6.5 K/mm3 (1.8-7.8); Neutrophils % 70.1 % (37.0-80.0); Platelet Count 418 K/mm3 (142-424); Red Blood Count 4.88 M/mm3 (4.20-5.40); White Blood Count 9.3 K/mm3 (4.8-10.8)
[2022-05-27 16:18] VITALS: BP 134/95; PULSE 92; RESP 18; TEMP 36.9
== END 2022-05-27 16:20 | disposition home or self-care (01) ==
PROVIDERS: Emergency Provider Nurse Practitioner Family; PCP Physician Assistant
DX: N93.8 Other specified abnormal uterine and vaginal bleeding (principal); Z79.3 Long term (current) use of hormonal contraceptives
CPT/HCPCS: 81025; 85025; 96365; 96366; 99213; G0463

== ENCOUNTER 2023-11-24 14:06 | Outpatient (CLI) | payer OTHER, SELFPAY ==
[2023-11-24 14:06] LABS: Chloride 104 mmol/L (98-107); Potassium 4.4 mmoL/L (3.5-5.1); Sodium 140 mmol/L (136-145)
[2023-11-24 14:09] LABS: Alanine Aminotransferase 29 U/L (12-78); Albumin Level 4.2 g/dl (3.5-5.0); Alkaline Phosphatase 82 U/L (38-126); Aspartate Amino Transferase 29 U/L (14-36); Bilirubin,Total 0.5 mg/dl (0.2-1.3); Blood Urea Nitrogen 13 mg/dl (7-17); Calcium 10.2 mg/dl (8.4-10.2); Estimated Glomerular Filt Rate 123 ml/min (>60); GFR (African American) 149 ML/MIN (>60); Glucose 89 mg/dl (74-100); Iron 127 ug/dL (37-170)
[2023-11-24 14:10] LABS: Albumin/Globulin Ratio 1.1 (1.1-1.8); Globulin 3.8 g/dL (1.3-3.2)
[2023-11-24 14:19] LABS: Total Iron Binding Capacity 372 ug/dL (265-497)
[2023-11-24 14:41] LABS: Thyroid Stimulating Hormone 2.03 uIU/mL (0.465-4.68)
[2023-11-24 14:45] LABS: Ferritin 63.1 ng/ml (6.24-137)
[2023-11-24 14:52] LABS: Basophils # 0.1 K/mm3 (0-0.2); Basophils % 1.1 % (0.1-2.0); Eosinophils # 0.4 K/mm3 (0.0-0.4); Eosinophils % 3.6 % (0.1-12.0); Hematocrit 45.4 % (37.0-47.0); Hemoglobin 14.4 g/dL (12.2-16.2); Lymphocytes % 27.3 % (10-50); Mean Corpuscular HGB Conc 31.7 g/dL (31.8-35.4); Mean Corpuscular Hemoglobin 27.6 pg (27.0-31.2); Mean Corpuscular Volume 87.3 fl (81-99); Mean Platelet Volume 9.6 fl (7.4-10.4); Monocytes # 0.6 K/mm3 (0.1-1.0); Monocytes % 5.1 % (1.7-9.3); Neutrophils # 6.9 K/mm3 (1.8-7.8); Platelet Count 565 K/mm3 (142-424); Red Cell Distribution Width 13.9 % (11.5-17.5); White Blood Count 10.9 K/mm3 (4.8-10.8)
[2023-11-24 15:00] LABS: Vitamin B12 561 pg/mL (239-931)
[2023-11-24 15:18] LABS: Folate 7.03 ng/mL
[2023-11-24 16:34] LABS: Anion Gap 13.4 mEq/L (5-15); Carbon Dioxide 27 mmol/L (22.0-30.0)
== END 2023-11-24 23:59 ==
LOC: LAB.DROPOF 14:06
PROVIDERS: PCP Physician Assistant; Visit Provider Physician Assistant
DX: I10 Essential (primary) hypertension (principal); D64.9 Anemia, unspecified; D72.828 Other elevated white blood cell count
CPT/HCPCS: 80053; 82607; 82728; 82746; 83540; 83550; 84443; 85025

== ENCOUNTER 2024-03-01 07:20 | Outpatient (CLI) | payer OTHER, SELFPAY ==
--- NOTE | 2024-03-01 07:20 | US_ITS ---
PROCEDURE: US TRANSVAGINAL CLINICAL INDICATION: f/u abnormal transvaginal US - fluid right adnexa COMPARISON: No exams were available for comparison FINDINGS: Transvaginal sonographic images of the pelvis were obtained. UTERUS: 7.2cm x 5.8 cmx 3.8 cm anteverted with a combined endometrial thickness of 3.1mm. There is a 0.7 cm nabothian cyst in the cervix. LEFT OVARY: 3.9 cmx2.3cmx1.9cm with a volume of 9ml. There are multiple small peripheral follicles. RIGHT OVARY: 4.6 cmx 2.1cmx2.5cm with a volume of 12.3ml. There are multiple small peripheral follicles. Both ovaries are seen and appear polycystic. Doppler flow to both ovaries are seen. There is no fluid in the cul-de-sac. IMPRESSION: 1. Anteverted uterus normal in shape and size. The endometrium is thin. 2. Both ovaries are seen and appear polycystic. 3. No fluid in the cul-de-sac and no fluid in the adnexa. Dictated by: Harinder Waldrop MD 03/02/2024 07:53 Harinder Waldrop MD in [place] 03/02/2024 07:53
== END 2024-03-01 23:59 | disposition home or self-care (01) ==
LOC: RAD 07:20
PROVIDERS: PCP Physician Assistant; Visit Provider Physician Assistant
DX: R93.89 Abnormal findings on diagnostic imaging of other specified body structures (principal); R19.8 Other specified symptoms and signs involving the digestive system and abdomen; E28.2 Polycystic ovarian syndrome
CPT/HCPCS: 76830

== ENCOUNTER 2024-05-13 17:00 | Emergency (ER) | payer OTHER, SELFPAY ==
[2024-05-13 17:45] VITALS: BP 161/97; PULSE 109; RESP 20; TEMP 37.3; O2SAT 100; BMI 40.8
--- NOTE | 2024-05-13 17:55 | EXP.UTC ---
Discharge Plan Disposition Patient Disposition: Home, Self-Care Condition: Good Prescriptions Prescriptions: New cephalexin 500 mg capsule 500 mg PO TID 10 Days Qty: 30 0RF bacitracin 500 unit/gram ointment 1 applic topical TID 10 Days Qty: 28 0RF No Action lisinopril 20 mg tablet 20 mg PO DAILY Qty: 30 2RF Vraylar 1.5 mg capsule 1.5 mg PO DAILY Qty: 90 3RF Referrals Follow up/Referrals: Shaka Cuevas APRN [Primary Care Provider] - See instructions Activity Restrictions/Add. Instructions Additional Instructions/Restrictions: Take medication as prescribed Clean piercing well and apply topical antibiotics Follow up with your Family Doctor if needed Straight to ER if any life threatening symptoms Clinical Impressions Clinical Impression: Otitis media Instructions Patient Instructions: Cephalexin, Bacitracin Topical Print Language Print Language: Occitan Discharge ED Provider: Ayaka Salazar [facility] [place] Stated complaint: painful swelling knot RT ear Mode of Arrival: Ambulatory Source of Information: Patient Limitations: No Limitations Time Seen by Provider: 05/13/24 17:55 Description of Symptoms (Recalled from Triage Doc. by RN): PATIENT C/O RIGHT EAR PAIN WITH SWOLLEN LYMPH NODES HEENT Symptoms (Recalled from RN notes): Yes Resp Symptoms (Recalled from RN notes): No Skin Symptoms (Recalled from RN notes): No MS Symptoms (Recalled from RN notes): No Functional Status (Recalled from RN notes): WNL History of Present Illness Provider Complaint: Patient states that she has been having pain and pressure in her rifght ear with swollen lymph nodes on that side States also she has gauged piercings in her ears and she tried to go up a size a few days ago and it is infected so today when it was still bothering her she came in to get him checked Related Data Previous Rx's ?Medication ?Instructions ?Recorded lisinopril 20 mg tablet 20 mg PO DAILY #30 tabs 01/31/24 cariprazine 1.5 mg capsule 1.5 mg PO DAILY #90 caps 04/17/24 (Vraylar) bacitracin 500 unit/gram topical 1 applic topical TID 10 days #28 05/13/24 ointment grams cephalexin 500 mg capsule 500 mg PO TID 10 days #30 caps 05/13/24 Allergies Allergy/AdvReac Type Severity Reaction Status Date / Time No Known Allergies Allergy Verified 09/20/23 14:07 Worker's Comp Is this a Worker's Comp case?: No [facility] Disclaimer: The information contained in this section may have been updated after the patient was seen, as this information can be updated by other users. Medical History Family history of diabetes mellitus (DM) Obesity, Class III, BMI 40-49.9 (morbid obesity) PCOS (polycystic ovarian syndrome) Social History Smoking Status: Never smoker alcohol intake: never substance use type: denies use current occupational status: unemployed Travel in the last 8 weeks: None household members: none housing: house ROS Obtained: Yes All systems reviewed & no additional complaints except as documented and Yes Systems reviewed as appropriate & no additional complaints except as documented Constitutional Constitutional: Reports system reviewed and no additional complaints, except as documented and Reports as per HPI ENT Ears, Nose, Mouth, and Throat: Reports system reviewed and no additional complaints, except as documented, Reports as per HPI and Reports otalgia Comments: infected gauged piercings, swollen lymph nodes Physical Exam General General appearance: alert and in no apparent distress ENT ENT exam: Present mucous membranes moist Expanded ENT Exam External ear exam: Present other (mild redness noted on gauged piercing on right side of earlobe) TM/Canal exam: Right TM: erythema and bulging Respiratory Respiratory exam: Present normal lung sounds bilaterally; Absent respiratory distress or wheezes Cardiovascular Cardiovascular exam: Present regular rate, normal rhythm and normal heart sounds Neurological Exam Neurological exam: Present alert, oriented X3 and normal gait Medical Decision Making Parker Inquiry Pt receiving controlled substance: No Parker was queried for this patient: No Vital Signs: 05/13/24 17:45 Temperature 99.1 F Temperature Source Oral Pulse Rate [Left Brachial] 109 H Respiratory Rate 20 Blood Pressure [Left Arm] 161/97 H Blood Pressure Mean [Left Arm] 118 Blood Pressure Source [Left Arm] Automatic Cuff Blood Pressure Position [Left Arm] Sitting 02 Sat by Pulse Oximetry 100 Oxygen Delivery Method Room Air
[2024-05-13 18:13] VITALS: BP 161/97; PULSE 109; RESP 20; TEMP 37.3; O2SAT 100
== END 2024-05-13 18:15 | disposition home or self-care (01) ==
PROVIDERS: Emergency Provider Nurse Practitioner; PCP Nurse Practitioner Family
DX: H66.91 Otitis media, unspecified, right ear (principal); H92.01 Otalgia, right ear
CPT/HCPCS: 99212; 99214; G0463

== ENCOUNTER 2024-09-27 07:04 | Outpatient (CLI) | payer OTHER, SELFPAY ==
[2024-09-27 18:20] LABS: Basophils # 0.1 K/mm3 (0-0.2); Basophils % 0.7 % (0.1-2.0); Eosinophils # 0.4 K/mm3 (0.0-0.4); Eosinophils % 4.3 % (0.1-12.0); Hematocrit 43.1 % (37.0-47.0); Hemoglobin 13.8 g/dL (12.2-16.2); Lymphocytes # 2.6 K/mm3 (0.7-4.5); Mean Corpuscular Hemoglobin 27.4 pg (27.0-31.2); Mean Corpuscular Volume 85.7 fl (81-99); Mean Platelet Volume 10.4 fl (7.4-10.4); Monocytes # 0.5 K/mm3 (0.1-1.0); Monocytes % 6.1 % (1.7-9.3); Neutrophils # 5.3 K/mm3 (1.8-7.8); Neutrophils % 59.7 % (37.0-80.0); Platelet Count 508 K/mm3 (142-424); Red Blood Count 5.03 M/mm3 (4.20-5.40); Red Cell Distribution Width 15.4 % (11.5-17.5); White Blood Count 8.9 K/mm3 (4.8-10.8)
[2024-09-27 18:53] LABS: Albumin Level 4.9 g/dl (3.5-5.0); Chloride 103 mmol/L (98-107); Potassium 4.5 mmoL/L (3.5-5.1); Sodium 141 mmol/L (136-145)
[2024-09-27 18:56] LABS: Alanine Aminotransferase 55 U/L (12-78); Albumin/Globulin Ratio 1.4 (1.1-1.8); Alkaline Phosphatase 65 U/L (38-126); Anion Gap 18.5 mEq/L (5-15); Aspartate Amino Transferase 40 U/L (14-36); Bilirubin,Total 0.6 mg/dl (0.2-1.3); Blood Urea Nitrogen 13 mg/dl (7-17); Carbon Dioxide 24 mmol/L (22.0-30.0); Estimated Glomerular Filt Rate 122 ml/min (>60); GFR (African American) 147 ML/MIN (>60); Globulin 3.5 g/dL (1.3-3.2); Total Protein,Serum 8.4 g/dl (6.3-8.2)
[2024-09-27 18:57] LABS: Calcium 9.8 mg/dl (8.4-10.2); Glucose 85 mg/dl (74-100)
[2024-09-27 19:25] LABS: Free T4 (Free Thyroxine) 1.51 ng/dl (0.78-2.19)
[2024-09-27 19:28] LABS: 25-OH Vitamin D, Total 18.9 ng/mL (30-100)
[2024-09-27 19:29] LABS: Hemoglobin A1C 5.2 % (4.0-6.0)
[2024-09-27 19:41] LABS: Thyroid Stimulating Hormone 2.28 uIU/mL (0.465-4.68)
== END 2024-09-27 23:59 | disposition home or self-care (01) ==
LOC: LAB.DROPOF 09-28 07:05
PROVIDERS: PCP Nurse Practitioner Family; Visit Provider Nurse Practitioner Family
DX: R53.83 Other fatigue (principal); E28.2 Polycystic ovarian syndrome; E03.9 Hypothyroidism, unspecified; E78.5 Hyperlipidemia, unspecified
CPT/HCPCS: 80053; 82306; 83036; 84439; 84443; 85025

== ENCOUNTER 2024-11-29 13:53 | Outpatient (CLI) | payer OTHER, SELFPAY | END 2024-11-29 23:59 | disposition home or self-care (01) | LOC: RT 13:54 | PROVIDERS: PCP Family Medicine; Visit Provider Family Medicine | DX: R00.2 Palpitations (principal) | CPT/HCPCS: 93270 ==